=== PATIENT | female | born 1995 | race African-American/Black ===

== ENCOUNTER → 2019-01-01 | Outpatient (CLI) | payer SELFPAY ==
--- NOTE | 2019-01-01 16:11 | RADIOLOGY REPORT (SQ) ---
EXAM DESCRIPTION: U/S OB 14+ TRNABD 1GES W/O DOP COMPLETED DATE/TIME: 01/01/2019 3:49 pm REASON FOR STUDY: Z34.03 ENCNTR FOR SUPRVSN OF NORMAL FIRST PREG, THIRD TRIMESTER Z34.03 ENCNTR FOR SUPRVSN OF NORMAL FIRST PREG, THIRD TRIMES COMPARISON: None. TECHNIQUE: Static and Dynamic grayscale imaging performed of gravid uterus using transabdominal appr oac. Additional selected color Doppler and spectral images recorded. All stored on PACS. LIMITATIONS: None. FINDINGS: FETUSES SEEN:1 EGA: 31 weeks 0 days Calculated using BPD,FL,HC,AC documented on images. No discrepancy with clinica l dates. SAFIA: 03/05/2019 EFW: 1673 grams LVP: 3.5 cm PLACENTA: Posterior PRESENTATION: Vertex ANATOMY: HEART RATE: 128 beats per minute. FOUR CHAMBER HEART: Visualized. THREE VESSEL CORD: Yes. CORD INSERTION: Visualized. KIDNEYS AND BLADDER: Visualized. Appear normal. STOMACH: Visualized. Appears normal. SPINE: Normal as visualized. BRAIN AND LATERAL VENTRICLES: Visualized. Appear normal. OTHER: No other significant finding. MATERNAL ADNEXA: Maternal ovaries not visualized. CERVICAL LENGTH: 3.4 cm Closed. OTHER: No other significant finding. IMPRESSION: LIVING INTRAUTERINE . ESTIMATED GESTATIONAL AGE 31 weeks, 0 days NO VISUALIZED ANOMALIES. Trimester of : Third trimester - 28 weeks to delivery. TECHNICAL DOCUMENTATION: JOB ID: [id number] [employer]- All Rights Reserved Reading location - IP/workstation name: [email or web address]
== END ==
LOC: RAD 15:10
PROVIDERS: ATTEND Nurse Practitioner Family
DX: Z34.03 Encounter for supervision of normal first pregnancy, third trimester (principal)
CPT/HCPCS: 76805